=== PATIENT | female | born 1995 | race Caucasian/White ===

== ENCOUNTER 2017-02-18 02:55 | Emergency (ER) | payer BC, OTHER ==
[~2017-02-18] VITALS: Ht 154.9 cm; Wt 74.8 kg
[~2017-02-18 02:55] MED LIST: ADDR10T PO; AGM875T PO; BPR100T PO; KETO10TA PO
[2017-02-18] MEDS ORDERED: NS 100 ML (IVPB) BAG IV ONE (03:45)
[2017-02-18] MEDS ORDERED: IOHEXOL 350 MG/ML 100 ML (OMNIPAQUE 350) VIAL IV ONE (03:45)
--- OUTSIDE RECORDS SUMMARY | 2017-02-18 09:48 | XMS REPORT ---
Author MAUDE Fish Organization [employer] Address Unknown Phone Unavailable Care Team Providers Care Operational Trainer Name Role Phone MAUDE LONDON CP Unavailable Allergies No Known Allergies Problems Problem Type Condition Code Onset Dates Condition Status Assessment Encounter for immunization Z23 Active Medications No Known Medications Procedures Procedure Coding System Code Date GARDASIL (HPV-3 DOSE) CPT-4 11697 Jul 12, 2015 VARICELLA CPT-4 23175 Jul 12, 2015 HEP A (PED/ADOL-2 DOSE) CPT-4 48025 Jul 12, 2015 IMMUNIZATION ADMIN, EACH ADD (please include units) CPT-4 65753 Jul 12, 2015 SINGLE IMMUNIZATION ADMIN CPT-4 92386 Jul 12, 2015 Results No Known Results Immunizations Vaccine Administration Date HEP A (PED/ADOL-2 DOSE) Jul 12, 2015 GARDASIL (HPV-3 DOSE) Jul 12, 2015 VARICELLA Jul 12, 2015 Summary Purpose [employer] Submission
--- OUTSIDE RECORDS SUMMARY | 2017-02-18 09:48 | XMS REPORT ---
Author KYLE Denton Organization [employer] Address Unknown Phone Unavailable Care Team Providers Care Special Skills Officer Name Role Phone KYLE JOSEPH CP Unavailable Allergies, Adverse Reactions, Alerts Substance Reaction Event Type Vyvanse Info Not Available Drug Allergy Problems Problem Type Condition ICD-9 Code Onset Dates Condition Status Assessment Headache 784.0 Active Assessment Cough 786.2 Active Medications Medication Code System Code Instructions Start Date End Date Status Dosage Adderall XR [facility] [address]-46 20 mg Oct 12, 2014 take 1 capsule by Oral route in the morning 1 time per day upon awakening Adderall [facility] [address]-52 5 mg November 19, 2013 1 Tablet 1 time per day afternoon Lexapro [facility] [address]-41 10 MG Orally Once a day [address] [facility] [address]-94 250 MG Orally Once a day Apr 20, 2015 Apr 25, 2015 2 tablets on the first day, then 1 tablet daily for [address] [facility] [address]-96 68 MG Subcutaneous not defined Procedures Procedure Coding System Code Date Office Visit, Est Pt., Level 3 CPT-4 37891 Apr 20, 2015 Vital Signs Date/Time: Apr 20, 2015 Temperature 97.5 F Weight 192.1 lbs Height 62 in BMI 35.13 Index Blood Pressure Diastolic 74 mmHg Blood Pressure Systolic 118 mmHg Cardiac Monitoring Heart Rate 80 bpm BMIPercentile 97.81 % Wt Percentile 96.93 % Results No Known Results Summary Purpose [employer] Submission
--- OUTSIDE RECORDS SUMMARY | 2017-02-18 09:48 | XMS REPORT | Continuity of Care Document ---
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 URINE (IN-HOUSE) 07/14/2014 [id number] ROUTINE VENIPUNCTURE 08/09/2014 [id number] CMP 08/09/2014 [id number] CELIAC DISEASE ANALYZER 08/09/2014 [id number] TSH 08/09/2014 Results Encounters ACCT No. Visit Date/Time Discharge Status Pt. Type Provider Facility Loc./Unit Complaint [id number] 11/14/2014 15:03:00 11/14/2014 23: 59:59 CLS Outpatient KYLE JOSEPH APRN [id number] 08/09/2014 10:36:00 08/09/2014 23: 59:59 CLS Outpatient KIERAN GUNDERSON MD [id number] 07/14/2014 11:09:00 07/14/2014 23: 59:59 CLS Outpatient LORI MENJIVAR APRN [id number] 07/13/2014 13:26:00 07/13/2014 23: 59:59 CLS Outpatient KYLE JOSEPH APRN [id number] 11/19/2013 09:35:00 11/19/2013 23: 59:59 CLS Outpatient KLEVER SHEPPARD APRN [id number] 06/21/2013 12:34:00 06/21/2013 23: 59:59 CLS Outpatient CARINA CORDERO DO [id number] 10/02/2012 10:20:00 10/02/2012 23: 59:59 CLS Outpatient CARINA CORDERO DO [id number] 08/11/2012 16:49:00 08/11/2012 23: 59:59 CLS Outpatient LUZ MARIA VALDEZ, HARSHIL Martinez [id number] 07/21/2012 16:00:00 07/21/2012 23: 59:59 CLS Outpatient [id number] 04/30/2013 08:55:00 Document Registration [id number] 04/27/2013 09:54:00 Document Registration
== END 2017-02-18 03:45 | disposition left against medical advice (07) ==
LOC: EDUNIT# 02:55 → ER 02:58
DX: R11.2 Nausea with vomiting, unspecified (principal); R10.9 Unspecified abdominal pain; Z53.21 Procedure and treatment not carried out due to patient leaving prior to being seen by health care provider
CPT/HCPCS: 99282

== ENCOUNTER → 2018-06-03 | Outpatient (CLI) | payer BC ==
--- NOTE | 2018-06-03 13:29 | Diagnostic Imaging Report ---
INDICATION: Acute pelvic pain TECHNIQUE: Multiple real time quintero scale sonographic images were obtained of the pelvis transabdominally and transvaginally. CORRELATION STUDY: None FINDINGS: UTERUS/ENDOMETRIUM: Uterus measures 5.7 x 3.6 x 3.1 cm. Endometrial thickness is one mm. The uterus and endometrium appearing unremarkable. RIGHT OVARY: 3.1 x 2.9 x 1.9 cm. Unremarkable. No mass. Normal blood flow. LEFT OVARY: May able to be visualized perhaps obscured by overlying bowel gas. No significant free pelvic fluid. IMPRESSION: 1. Unremarkable appearing pelvic ultrasound examination. Left ovary unable to be visualized. Dictated by: Dictated on workstation # [id number]
== END ==
LOC: RAD 11:49
PROVIDERS: ATTEND Obstetrics & Gynecology
DX: R10.2 Pelvic and perineal pain (principal)
CPT/HCPCS: 76830; 76856

== ENCOUNTER 2018-07-07 06:38 | Outpatient (CLI) | payer BC ==
[~2018-07-07] VITALS: Ht 154.9 cm; Wt 74.8 kg
== END 2018-07-07 12:28 | disposition home or self-care (01) ==
LOC: PREOP 06:38
PROVIDERS: ATTEND Surgery
DX: Z01.818 Encounter for other preprocedural examination (principal)

== ENCOUNTER 2018-07-14 08:56 | Day surgery (SDC) | payer BC ==
[~2018-07-14] VITALS: Ht 154.9 cm; Wt 74.8 kg
[2018-07-14] MEDS ORDERED: LACTATED RINGERS 1,000 ML IV STA (09:08)
[2018-07-14] MEDS ORDERED: LACTATED RINGERS 1,000 ML IV ONE (09:25)
[2018-07-14 09:45] VITALS: BP 122/81
[2018-07-14] MEDS ORDERED: HURRICAINE EXT TUBE (BENZOCAINE) ONE (10:33)
[2018-07-14] MEDS ORDERED: MIDAZOLAM 2 MG/2 ML (VERSED) VIAL ONE (10:44)
[2018-07-14] MEDS ORDERED: PROPOFOL INJECTION 50 ML IV ONE (10:44)
[2018-07-14] MEDS: HURRICAINE EXT TUBE (BENZOCAINE) XX PRN (10:47)
--- NOTE | 2018-07-14 10:51 | Progress Note-Pre Operative ---
Pre-Operative Progress Note H&P Reviewed The H&P was reviewed, patient examined and also notes reflux issues on and off. risk and benefits of egd discussed and wishes to add it on. Date Seen by Provider: Jul 14, 2018 Time Seen by Provider: 10:50 Date H&P Reviewed: Jul 14, 2018 Time H&P Reviewed: 10:51 Pre-Operative Diagnosis: bright red blood per rectum, gerd DWAIN HEATON DO Jul 14, 2018 10:51
[2018-07-14 11:30] VITALS: BP 101/60
--- NOTE | 2018-07-14 11:33 | Progress Note-Post Operative ---
Post-Operative Progess Note Surgeon (s)/Stenciler (s) Surgeon DWAIN HEATON DO Stenciler: na Pre-Operative Diagnosis bright red blood per rectum, gerd Post-Operative Diagnosis duodenal ulcer, hiatal hernia, internal hemorrhoids Procedure & Operative Findings Date of Procedure 07/14/18 Procedure Performed/Findings egd c biopsies, colonoscopy Anesthesia Type per bias cutting machine operator Estimated Blood Loss Estimated blood loss (mL): min Specimens/Packing Specimens Removed duodenum, antrum, ge DWAIN HEATON DO Jul 14, 2018 11:33
[2018-07-14] MEDS ORDERED: SUCR1TAB36 PO (11:34)
[2018-07-14] MEDS ORDERED: PANT40TA2 PO (11:34)
--- NOTE | 2018-07-14 11:35 | Discharge Inst-Simple/Standard ---
Discharge Inst-Standard Discharge Medications New, Converted or Re-Newed RX: Transmitted to Pharmacy Patient Instructions/Follow Up Plan of Care/Instructions/FU: 2 weeks [place] Activity as Tolerated: Yes Discharge Diet: Regular Diet DWAIN HEATON DO Jul 14, 2018 11:35
[2018-07-14 12:00] VITALS: BP 104/71
--- NOTE | 2018-07-14 12:15 | Anesthesia-General Post-Op ---
MAC Patient Condition Mental Status/LOC: Same as Preop Cardiovascular: Satisfactory Nausea/Vomiting: Absent Respiratory: Satisfactory Pain: Controlled Complications: Absent Post Op Complications Complications None Follow Up Care/Instructions Patient Instructions None needed. Anesthesiology Discharge Order Discharge Order Patient is doing well, no complaints, stable vital signs, no apparent adverse anesthesia problems. No complications reported per nursing. NASREEN BROOKS CRNA Jul 14, 2018 12:15
[2018-07-14 12:20] VITALS: BP 104/71
--- NOTE | 2018-07-14 20:18 | OPERATIVE REPORT ---
DATE OF SERVICE: 07/14/2018 PREOPERATIVE DIAGNOSES: Bright red blood per rectum disease, gastroesophageal reflux disease. POSTOPERATIVE DIAGNOSES: Duodenal ulcer, hiatal hernia, internal hemorrhoids. PROCEDURE: EGD with biopsies, colonoscopy. SURGEON: Dwain Ozuna DO ANESTHESIA: Per COMMUTATOR OPERATOR. ESTIMATED BLOOD LOSS: Minimal. COMPLICATIONS: None. SPECIMENS: Duodenum, antrum and GE junction. INDICATIONS: The patient is a 23-year-old female who is having some bright red blood per rectum. She also has gastroesophageal reflux disease from time to time. She understands risks and benefits of both procedures and wished to proceed with procedures. Consent was signed in the chart. DESCRIPTION OF PROCEDURE: The patient was taken to the endoscopy suite, placed in left lateral recumbent position. Timeout was performed. Scope was inserted in the mouth, down the esophagus, stomach and into the duodenum. There were no polyps, masses or ulcerations in the second portion of duodenum. In the first portion, there is a small erosion and then there is some slight inflammation in the areas with a small ulceration. Biopsy of this was obtained. Scope was slowly retracted back into the stomach where it was further insufflated. Biopsy of the antrum was obtained. There are some slight erythematous changes present. Scope was retroflexed noting a small hiatal hernia. No other pathology noted. Scope was returned to its normal position, slowly withdrawn to the distal esophagus. At the GE junction, there is some slight erythematous change as well. No polyps, masses or ulcerations. Biopsy of the GE junction was obtained. Scope was then slowly retracted back to completely remove, noting no other pathology. Digital rectal exam was performed. There were no palpable polyps, masses or ulcerations. There were some slight internal hemorrhoids. Scope was inserted in the rectum, advanced all the way to the cecum with minimal difficulty. Prep was adequate. Scope was then slowly retracted back. No polyps, masses, ulcerations of the cecum, ascending, transverse, descending and sigmoid colon. Once in the rectum, scope was retroflexed noting some of the internal hemorrhoids. No other pathology noted. Scope was returned to its normal position, slowly withdrawn until completely removed, noting no other pathology. The patient tolerated procedure well without any complications. She was taken to recovery room in stable condition. RECOMMENDATIONS: The patient to be started on Protonix 40 mg daily and Carafate 1 gram 4 times a day and see how this does with her symptoms. The patient also will consider hemorrhoid energy treatment. The patient will follow up in the office in two to three weeks to discuss pathology. Job ID: [id number] DocumentID: [id number] Dictated Date: 07/14/2018 11:38:49 Structural Shop Helper Date: 07/14/2018 20:17:35 Dictated By: DWAIN OZUNA DO
== END 2018-07-14 12:20 | disposition home or self-care (01) ==
LOC: ENDO 08:56
PROVIDERS: ATTEND Surgery
DX: K62.5 Hemorrhage of anus and rectum (principal); K64.8 Other hemorrhoids; K26.9 Duodenal ulcer, unspecified as acute or chronic, without hemorrhage or perforation; K21.9 Gastro-esophageal reflux disease without esophagitis; K44.9 Diaphragmatic hernia without obstruction or gangrene; F17.210 Nicotine dependence, cigarettes, uncomplicated
CPT/HCPCS: 84703